=== PATIENT | female | born 1960 | race Caucasian/White ===

== ENCOUNTER → 2016-04-05 | Day surgery (SDC) | payer OTHER ==
[2016-04-05 06:22] LABS: HCT 39.4 % (37.0-47.0); HGB 13.1 g/dl (12.5-16.0); MCH 28.2 pg (25.0-31.0); MCHC 33.2 g/dL (32.0-36.0); MCV 84.9 fL (78.0-100.0); MPV 8.7 fL (6.0-9.5); RBC 4.64 M/uL (4.20-5.40); RDW 13.8 % (11.5-14.0); WBC 5.9 K/uL (4.0-10.5)
== END | disposition home or self-care (01) ==
LOC: FAS 05:43
PROVIDERS: Legal Medicine
DX: M23.221 Derangement of posterior horn of medial meniscus due to old tear or injury, right knee (principal); M17.11 Unilateral primary osteoarthritis, right knee; K21.9 Gastro-esophageal reflux disease without esophagitis; E03.9 Hypothyroidism, unspecified; F32.9 Major depressive disorder, single episode, unspecified; Z90.49 Acquired absence of other specified parts of digestive tract; Z98.890 Other specified postprocedural states; Z79.899 Other long term (current) drug therapy
CPT/HCPCS: 36415; 84703; J0690; J1170; J2274; J2405; J2704; J2795; J3010